=== PATIENT | female | born 1945 | race Caucasian/White ===

== ENCOUNTER → 2019-05-27 14:47 | Outpatient (CLI) | payer MEDICARE, OTHER, SELFPAY ==
--- NOTE | ~2019-05-27 | US_ITS ---
EXAMINATION: US transvaginal DATE: 05/27/2019 15:19 INDICATION: Postmenopausal bleeding. TECHNIQUE: Multiple transvaginal sonographic images of the pelvis were obtained. COMPARISON: Ultrasound 09/06/2011 FINDINGS: The uterus measures 10.9 x 5.5 x 7.7 cm. The uterus demonstrates coarsened echotexture. There is no f ree fluid in the pelvis. The endometrial complex measures 7 mm in thickness. The right ovary is not v isualized. The left ovary is not visualized. IMPRESSION: 1. Thickened endometrial complex. The differential diagnosis includes endometrial hyperplasia, polyp, and carcinoma. Biopsy is recommended. Reviewed, dictated and finalized at location A. TER ELECTRICAL IMPRESSION: 1. Thickened endometrial complex. The differential diagnosis includes endometri al hyperplasia, polyp, and carcinoma. Biopsy is recommended.
== END ==
PROVIDERS: Visit Provider Obstetrics & Gynecology Gynecology
DX: N95.0 Postmenopausal bleeding (principal); R93.89 Abnormal findings on diagnostic imaging of other specified body structures
CPT/HCPCS: 76830

== ENCOUNTER 2019-06-08 00:23 | Day surgery (SDC) | payer MEDICARE, OTHER, SELFPAY ==
[2019-06-03 15:13] VITALS: BMI 26.6
--- NOTE | 2019-06-08 07:24 | PM.HPGS ---
History of Present Illness History of Present Illness Consent: Risks, benefits, and alternatives have been discussed and questions answered. Patient agrees to proceed with procedure. Chief complaint: Post Menopausal Bleeding Narrative: Elaina Luque is a 74 year old female with postmenopausal bleeding. U/s showed thickened endometrium. Recommended to proceed with hysteroscopy and D&C. Reviewed risks of infection, bleeding, and perforation. Reviewed possible pathology. Patient voiced understanding and agrees to proceed. [facility] Past Medical History Medical History (Updated 06/08/19 @ 07:30 by Meli Brody MD) Hypothyroid Type 2 diabetes mellitus Surgical History Surgical History (Updated 06/08/19 @ 07:29 by Meli Brody MD) H/O foot surgery History of 2 sections Hx of cholecystectomy Family History Family History (Updated 08/11/18 @ 10:06 by DOCTOR UNKNOWN) Father Carcinoma of colon Family history of heart disease in male family member before age 55 Patient's father is Family history of cardiovascular disease Family history of lung cancer Mother Family history of dementia Hypertension Social History Social History Smoking status: Never smoker Second hand tobacco smoke exposure: No Alcohol intake: never Meds Home Medications and Allergies Home Medications Medication Instructions Recorded Confirmed Type metformin 500 mg tablet 500 mg PO BID 03/19/19 06/03/19 History L.acid-L.casei-B.bif-B.gabriel-FOS 1 cap PO DAILY 06/03/19 06/03/19 History [Probiotic Blend] Nad Precursor 1 cap PO DAILY 06/03/19 History Tear Support 1 cap PO DAILY 06/03/19 History coQ10 (ubiquinol) 1 tablet PO DAILY 06/03/19 06/03/19 History ferrous sulfate [Slow Fe] 142 mg PO 3XW 06/03/19 06/03/19 History vitamin B complex 1 tablet PO DAILY 06/03/19 06/03/19 History vitamin D3-vitamin K2 1 tablet PO DAILY 06/03/19 06/03/19 History Allergies Allergy/AdvReac Type Severity Reaction Status Date / Time fluorescein Allergy Intermediate LIPS/FACIAL Verified 06/03/19 15:15 TINGLING, SWELLING Sulfa (Sulfonamide Allergy Unknown Rash Verified 06/03/19 15:15 Antibiotics) sulfanilamide Allergy Unknown Rash Verified 06/03/19 15:15 Exam Const: General: healthy appearing and alert Orientation/consciousness: patient oriented x3 Resp: Effort & Inspection: normal respiratory effort Auscultation: clear to auscultation bilaterally Cardio: Rate: regular rate Rhythm: regular rhythm GI: GI Palp: Yes Soft to palpation, No Tenderness to palpation present (GI) and No Palpable mass present : External Female Exam: normal external appearance Speculum Exam - Vagina: normal appearance of the vagina, normal vaginal discharge and abnormal vaginal discharge (dark blood in vault and through cervix) Speculum Exam - Cervix: normal appearance of the cervix Bimanual exam- vagina & uterus: uterine size normal and consistency normal Bimanual Exam- Adnexa, other: normal adnexae and No adnexal tenderness Neuro: General: patient oriented x3 Assessment and Plan Assessment and plan (1) History of postmenopausal bleeding: Code(s): Z87.42 - Personal history of other diseases of the female genital tract Status: Acute Assessment and Plan: Plan D&C hysterscopy
--- NOTE | 2019-06-08 08:34 | ECG_ITS ---
Measurements Intervals [place] Rate: 73 P: 53 CT: 140 QRS: -5 QRSD: 89 T: 17 QT: 375 QTc: 414 Interpretive Statements SINUS RHYTHM DELAYED PRECORDIAL R/S TRANSITION BASELINE ARTIFACT- I, II, AVR, V1 BORDERLINE ECG Electronically Signed On 06-08-2019 9:04:17 CDT by Moises Jones D.O.
[2019-06-08 08:45] VITALS: BP 155/75; PULSE 73; RESP 16; TEMP 37.3; O2SAT 99
[2019-06-08] MEDS: LACTATED RINGERS 1,000 ML 30 ML IV CONT (08:55)
[2019-06-08 09:04] LABS: Hematocrit 37.4 % (37.0-47.0); Hemoglobin 12.1 g/dL (12.0-15.0)
[2019-06-08 09:06] LABS: Glucose Point of Care 102 (65-105)
--- NOTE | 2019-06-08 09:07 | WPDANESEPPF ---
Anes - Initial Pre Proc Eval Procedure: Operation Date: 06/08/19 10:00 Proposed Procedures p Hysteroscopy, Dilation and Curettage - Meli Brody MD Date/Time: 06/08/19 09:07 Surgeon: Meli Brody MD Pre Op Diagnosis: Post Menopausal Bleeding Patient Data Age: 74 Gender: F Height: 5 ft 4 in Weight: 72.3 kg Last Vital Signs Temp 37.3 C 06/08/19 08:45 Pulse 73 06/08/19 08:45 Resp 16 06/08/19 08:45 BP 155/75 H 06/08/19 08:45 Pulse Ox 99 06/08/19 08:45 Allergies Allergy/AdvReac Type Severity Reaction Status Date / Time fluorescein Allergy Intermediate LIPS/FACIAL Verified 06/08/19 08:26 TINGLING, SWELLING Sulfa (Sulfonamide Allergy Unknown Rash Verified 06/08/19 08:26 Antibiotics) sulfanilamide Allergy Unknown Rash Verified 06/08/19 08:26 Home Medications Medication Instructions Recorded Confirmed Type metformin 500 mg tablet 500 mg PO BID 03/19/19 06/08/19 History L.acid-L.casei-B.bif-B.gabriel-FOS 1 cap PO DAILY 06/03/19 06/08/19 History [Probiotic Blend] Nad Precursor 1 cap PO DAILY 06/03/19 06/08/19 History Tear Support 1 cap PO DAILY 06/03/19 06/08/19 History coQ10 (ubiquinol) 1 tablet PO DAILY 06/03/19 06/08/19 History ferrous sulfate [Slow Fe] 142 mg PO 3XW 06/03/19 06/08/19 History vitamin B complex 1 tablet PO DAILY 06/03/19 06/08/19 History vitamin D3-vitamin K2 1 tablet PO DAILY 06/03/19 06/08/19 History Laboratory Tests 06/08/19 06/08/19 06/08/19 09:00 09:00 09:03 Hgb Pending Hct Pending Sodium Pending Potassium Pending Chloride Pending Carbon Dioxide Pending BUN Pending Creatinine Pending Estim Creat Clear Calc Pending Estimated GFR Pending Glucose Pending POC Capillary Glucose 102 mg/dl mg/dl (65-105) Calcium Pending Patient hx anesthesia problems: post op nausea/vomiting Family hx anesthesia problems: none PMFSH Past Medical History Medical History Hypothyroid Type 2 diabetes mellitus Surgical History Surgical History H/O foot surgery History of 2 sections Hx of cholecystectomy Family History Family History Father Carcinoma of colon Family history of heart disease in male family member before age 55 Patient's father is Family history of cardiovascular disease Family history of lung cancer Mother Family history of dementia Hypertension Social History Social History Smoking status: Never smoker Second hand tobacco smoke exposure: No Alcohol intake: never Anes - Eval Final PreProcedure Day of Procedure 06/08/19 09:07 Patient weight: overweight Heart: regular rate and rhythm Lungs: clear to auscultation Airway: Mallampati scale class II Neurological: alert and oriented Last oral intake: >/= 8 hours ASA classification: III Emergent: no Anesthetic plan: proceed Anesthesia type and monitoring: general GIVS and standard monitoring Informed Consent: The patient's anesthetic plan and its attendant risks and benefits were discussed with the patient/family/POA. Questions were solicited and answers provided to the satisfaction of the patient/family/POA.
[2019-06-08 09:18] LABS: Blood Urea Nitrogen 14 mg/dL (7-17); Calcium 8.9 mg/dL (8.4-10.2); Carbon Dioxide 30 mmol/L (22-30); Chloride 102 mmol/L (98-107); Estimated CRCL calculation 83 ml/min; Estimated Glomerular Filt Rate > 60; Glucose 108 mg/dL (65-105); Potassium 3.9 mmol/L (3.4-5.0); Sodium 139 mmol/L (137-145)
[2019-06-08] MEDS: IBUPROFEN IV 800 MG/200 ML 800 MG/200 ML BAG 400 MG IVPB (09:48)
--- NOTE | 2019-06-08 09:55 | SUR.OPER ---
EBL:5CC, HYSTEROSCOPY FLUID:800CC OUT OF BAG, 700CC COLLECTED
--- NOTE | 2019-06-08 09:56 | PM.OP ---
Procedure Note - Brief Procedure Note - Brief Date of procedure: 06/08/19 Pre-op diagnosis: Post Menopausal Bleeding Post-op diagnosis: same Procedure performed: D&C hysteroscopy with myosure resection of polyp Anesthesia: MAC and local Surgeon: Meli Brody MD Estimated blood loss (mL): 5 Drains: No Packing: No Pathology: yes (endometrial shavings and curettings) Complications: No immediate complications Condition: stable Disposition: PACU Findings: large anterior endometrial polyp
[2019-06-08 10:05] VITALS: BP 126/63; PULSE 67; RESP 12; O2SAT 99
[2019-06-08 10:35] VITALS: BP 131/70; PULSE 61; RESP 16
--- NOTE | 2019-06-08 10:39 | SUR.PHASEII ---
1039 called an updated spouse and told him he could head up here to pick her up
--- NOTE | 2019-06-08 13:30 | OP_ITS ---
DATE OF PROCEDURE: 06/08/2019 PREOPERATIVE DIAGNOSIS: Postmenopausal bleeding. POSTOPERATIVE DIAGNOSIS: Postmenopausal bleeding. PROCEDURE: D and C, hysteroscopy with MyoSure resection of endometrial polyp. ANESTHESIA: MAC and local. FINDINGS: The uterus sounds to 8 cm. The cervix is stenotic. There is a large anterior endometrial polyp. The remainder of the endometrium appears atrophic. ESTIMATED BLOOD LOSS: 5 cc. PATHOLOGY: Endometrial shavings and curettings. DESCRIPTION OF PROCEDURE: The patient was taken to the operating room, placed under anesthesia in the dorsal lithotomy position. She was prepped and draped in the usual sterile fashion. Bivalved speculum was placed in the vagina. Cervix was grasped on the anterior lip with a tenaculum and injected with 1% lidocaine. The sound was used and the internal os was noted to be stenotic. The Os Finders were used and the cervix was opened. The cervix was serially dilated with Hegar. The uterus sounded to 8 cm. The diagnostic hysteroscope was placed. A large anterior polyp was noted. The MyoSure device was opened and placed. Under direct visualization, the polyp was removed in its entirety. The instruments were removed. The medium sharp curette was used to sharply curette the endometrium. Minimal material was obtained consistent with the atrophic appearance. All instruments were removed. The patient was awakened from anesthesia and taken to Recovery in stable condition. Aline I MT: Alexei
== END 2019-06-08 11:05 | disposition home or self-care (01) ==
PROVIDERS: Anesthesiology; PCP Internal Medicine; Visit Provider Obstetrics & Gynecology Gynecology
PROC: 0U5B8ZZ Destruction of Endometrium, Via Natural or Artificial Opening Endoscopic (ICD-10-PCS; CPT 58563; principal; 2019-06-08 10:00)
DX: N95.0 Postmenopausal bleeding (principal); N84.0 Polyp of corpus uteri; E03.9 Hypothyroidism, unspecified; E11.9 Type 2 diabetes mellitus without complications; Z79.84 Long term (current) use of oral hypoglycemic drugs
CPT/HCPCS: 58558; 36415; 80048; 85014; 85018; 88305; 93005; J1100; J1741; J2250; J2405; J2704; J3010; J7120

== ENCOUNTER 2020-04-15 14:45 | Outpatient (CLI) | payer MEDICARE, OTHER, SELFPAY ==
--- NOTE | ~2020-04-15 | US_ITS ---
EXAMINATION: US venous doppler [facility] DATE: 04/15/2020 15:23 INDICATION: Left lower limb pain. TECHNIQUE: Grayscale ultrasound images without and with compression and Doppler ultrasound images of the left lower extremity veins were obtained. COMPARISON: None. FINDINGS: The visualized portions of left common femoral vein, profunda (deep) femoral vein, femoral vein, popl iteal vein, peroneal veins, posterior tibial veins, and greater saphenous vein outflow are patent. IMPRESSION: 1. No deep venous thrombosis. Reviewed, dictated and finalized at location A. ARY TECH
== END 2020-04-15 14:46 | disposition home or self-care (01) ==
LOC: ANHIMG 14:52
PROVIDERS: PCP Internal Medicine; Visit Provider Internal Medicine
DX: M79.605 Pain in left leg (principal)
CPT/HCPCS: 93971

== ENCOUNTER → 2020-04-26 15:07 | Outpatient (CLI) | payer MEDICARE, OTHER, SELFPAY ==
--- NOTE | ~2020-04-26 | US_ITS ---
EXAMINATION: US soft tissue LE DATE: 04/26/2020 15:27 INDICATION: Left leg pain posterior and lateral to the left knee TECHNIQUE: Multiple grayscale and Doppler ultrasound images of the region of concern at the posterior lateral aspect of the left knee were obtained. COMPARISON: None FINDINGS/IMPRESSION: Unremarkable appearance to the subcutaneous tissues at the region of concern. No abnormal masses or f luid collections identified. Reviewed, dictated and finalized at location B. ICAL SUPPORT TECH
== END ==
PROVIDERS: PCP Internal Medicine; Visit Provider Internal Medicine
DX: M79.605 Pain in left leg (principal)
CPT/HCPCS: 76882

== ENCOUNTER → 2020-10-12 09:56 | Outpatient (CLI) | payer MEDICARE, OTHER, SELFPAY ==
--- NOTE | ~2020-10-12 | XR_ITS ---
XR tibia fibula LT 2V DATE: 10/12/2020 15:46 INDICATION: Left leg pain TECHNIQUE: AP and lateral views COMPARISON: None FINDINGS: No fracture, dislocation, periosteal reaction or bone destruction of the tibia or fibula is detected. Mild osteoarthritic changes at the knee joint. IMPRESSION: No significant abnormality of the tibia or fibula Reviewed, dictated and finalized at location B.
== END ==
PROVIDERS: PCP Internal Medicine; Visit Provider Nurse Practitioner
DX: M79.605 Pain in left leg (principal)
CPT/HCPCS: 73590

== ENCOUNTER 2020-12-01 10:45 | Outpatient (RCR) | payer MEDICARE, OTHER, SELFPAY ==
--- NOTE | 2020-10-25 14:18 | PTOPEVAL ---
PHYSICAL THERAPY EVALUATION AND PLAN OF CARE Thank you for referring Elaina Luque to [facility] The patient is scheduled to be seen for therapy?2x/week for 4 weeks. Please review, sign, date and return this plan of care ADELINA. I agree with and certify that the following plan of care is medically necessary. Referring Physician Date Attending Provider: Blanca French, WALTER-C Evaluation Outpatient Past Medical History Neurological History Hx Neurological Disorders No Significant History Cardiovascular History Hx Cardiac Disorders No Significant History Respiratory History Hx Respiratory Disorders No Significant History Gastrointestinal History Hx Cholecystectomy Yes Genitourinary History Hx Other Genitourinary Disorders Yes: PROLAPSED BLADDER- PESSARY DEVICE Musculoskeletal History Hx Arthritis Yes Hx Other Musculoskeletal Disorders Yes: INJURY TO RT HAND- DEGLOVING INJURY, NECK MUSCLE SURGERY Hematological History Hx Hematological Disorders No Significant History Endocrine History Hx Diabetes Yes HEENT History Hx Other HEENT Disorders Yes: SALIVARY STONES Integumentary History Hx Skin Disorders No Significant History Reproductive History Hx Abnormal Uterine Bleeding Yes Hx Section Yes: X2 Hx Post Menopausal Yes Psychosocial History Hx Psychiatric Disorders No Significant History Pain History History of Any Previous or Ongoing No Significant History Instance of Pain Anesthesia History Hx Post-Op Nausea/Vomiting Yes: REPORTS LAST FOR 3 DAYS AFTER GENERAL ANESTHESIA Other History Hx Other Surgeries Yes: FOOT SURGERY X2 FOR IMPACTED SWEAT GLANDS Diagnosis left leg pain Onset January 2020 Subjective Information reports that the pain Query Text:As Reported By Patient/ initially started after an Family accident and it hurt so bad she could not walk for 3 days and she used a walker. After a little bit it started to ease. But now she reports that there is severe pain in the lower left leg when she first gets out of bed first thing in the morning or whne she stands up after sitting for a time. She states that the pain wraps around the left lower leg and into the ankle. She states that it hurts so
--- NOTE | 2020-11-10 11:43 | PTOPEVAL ---
PHYSICAL THERAPY PLAN OF CARE UPDATE AND PROGRESS REPORT Thank you for referring Elaina Luque to [facility].? The patient is scheduled to be seen for therapy? 1x/week for 3 weeks. Please review, sign, date and return this plan of care ADELINA. I agree with and certify that the following plan of care is medically necessary. Referring Physician Date Attending Provider: Blanca French, TUBE KNITTER-C Diagnosis left leg pain Onset January 2020 Subjective Information reports that her overall pain Query Text:As Reported By Patient/ is so much improved compared Family to two weeks ago. The pain when she first gets out of bed is not nearly as severe as it was. Continues to have some pain around the quadriceps and some in the back of the knee. l Pain Score 0: Self Report Interventions Used Interventions Used By Clinicians Exercise,Manual Therapy Techniques Lower Extremity Range of Motion Knee Range of Motion Right Knee Flexion Range of Motion - Active 130 Knee Extension Range of Motion - Active 0 Query Text: Left Knee Flexion Range of Motion - Active 127 Knee Extension Range of Motion - Active -11 Query Text: Lower Extremity Muscle Strength Testing Hip Strength Right Hip Flexion Strength 5 Normal Hip Extension Strength 3 Fair Hip Abduction Strength 3+ Fair + Hip Medial Rotation Strength 5 Normal Hip Lateral Rotation Strength 5 Normal Left Hip Flexion Strength 5 Normal Hip Extension Strength 4 Good Hip Abduction Strength 4 Good Hip Medial Rotation Strength 5 Normal Hip Lateral Rotation Strength 5 Normal Knee Strength Right Knee Flexion Strength 5 Normal Knee Extension Strength 5 Normal Knee Strength Comments SLS on each side she achieves at least 10seconds but both sides have significant sway, left side is uncomfortable Left Knee Flexion Strength 4+ Good + Knee Extension Strength 4+ Good + Knee Strength Comments mildly pain to MMT Palpation Assessment Palpation Palpation continues to have decreased patellar mobility and noted trigger points in left quadriceps today Balance Assessment 5 Time Sit to Stand Time in Seconds 8.85 Stair Climbing Assessment Stair Climbing Assessment Stair Climbing Assistive Devices None Weight Bearing Status - Left Full Weight Bearing Status - Right
--- NOTE | 2020-12-01 11:24 | PTOPEVAL ---
PHYSICAL THERAPY DISCHARGE NOTE Thank you for referring Elaina Luque to [facility].? Please review, sign, date and return this plan of care ADELINA. I agree with and certify that the following plan of care is medically necessary. Referring Physician Date Attending Provider: Blanca French, GLASS MOULD CLEANER-C Discharge Diagnosis left leg pain Onset January 2020 Subjective Information Reports that her pain is Query Text:As Reported By Patient/ nearly gone. She is reporting Family that she feels like her pain is gone and her core balance has improved and she is much more able to help take care of her horses. She comments that it is difficult for her to come off the ground from half kneeling so we updated HEP to increased strength to be able to more easily achieve this task Self Report Pain Assessment Left Leg(s) Reported Pain Level 0 Pain Score Pain Score 0: Self Report Interventions Used Interventions Used By Clinicians Exercise Lower Extremity Range of Motion Knee Range of Motion Right Knee Flexion Range of Motion - Active 130 Knee Extension Range of Motion - Active 0 Query Text: Left Knee Flexion Range of Motion - Active 140 Knee Extension Range of Motion - Active 0 Query Text: Lower Extremity Muscle Strength Testing Hip Strength Right Hip Flexion Strength 5 Normal Hip Extension Strength 3 Fair Hip Abduction Strength 4+ Good + Hip Medial Rotation Strength 5 Normal Hip Lateral Rotation Strength 5 Normal Left Hip Flexion Strength 5 Normal Hip Extension Strength 4- Good - Hip Abduction Strength 4+ Good + Hip Medial Rotation Strength 5 Normal Hip Lateral Rotation Strength 5 Normal Knee Strength Right Knee Flexion Strength 5 Normal Knee Extension Strength 5 Normal Left Knee Flexion Strength 4+ Good + Knee Extension Strength 5 Normal Knee Strength Comments mildly pain to MMT Muscle Length Testing Muscle Length Testing Left Hamstring Length -30 Query Text:(90 - 90 Position) Right Hamstring Length -30 Query Text:(90 - 90 Position) Right Prone Knee Flexor Muscle Length ( 110 degrees) Left Prone Knee Flexor Muscle Length ( 110 degrees) General Exercise General Exercises Side Left Exercise Location LE Exercise Type
== END 2020-12-01 15:57 | disposition home or self-care (01) ==
LOC: ANHPT 10:45
PROVIDERS: PCP Internal Medicine; Visit Provider Nurse Practitioner
DX: M79.605 Pain in left leg (principal)
CPT/HCPCS: 97110; 97140; 97162

== ENCOUNTER → 2021-03-08 13:18 | Outpatient (CLI) | payer MEDICARE, OTHER, SELFPAY ==
--- NOTE | ~2021-03-08 | DEXA_ITS ---
Bone Density Report Name: NICHOLAS RUIZ Age: 75 Sex: Female Ethnicity: White Date of : 1945 Indication: monitoring treatment; height loss; postmenopausal Referring Provider: REINA CHAMBERS Study: Bone densitometry was performed. Exam Date: March 08, 2021 Accession number: [id number] Bone Density: Region BMD T-score Z-score Classification AP Spine (L1-L4) 1.223 1.6 3.9 Normal Femoral Neck (Left) 0.796 -0.5 1.5 Normal Total Hip (Left) 0.952 0.1 1.8 Normal Femoral Neck (Right) 0.757 -0.8 1.2 Normal Total Hip (Right) 1.022 0.7 2.4 Normal Total Hip Mean 0.987 0.4 2.1 Normal World Health Organization criteria for BMD impression classify patients as: Normal (T-score at or above -1.0), Osteopenia (T-score between -1.0 and -2.5), or Osteoporosis (T-score at or below -2.5). 10-year Fracture Risk: FRAX not reported because: All T-scores for Spine Total, Hip Total, Femoral Neck at or above -1.0 Treated for osteoporosis Previous Exams: Region Exam Age BMD T-score BMD Change BMD Change Date g/cm2 vs Baseline vs Previous AP Spine(L1-L4) 03/08/2021 75 1.223 1.6 0.060* 0.060* 09/29/2007 62 1.163 1.1 Total Hip(Left) 03/08/2021 75 0.952 0.1 0.002 0.002 09/29/2007 62 0.950 0.1 Total Hip(Right) 03/08/2021 75 1.022 0.7 0.013 0.013 09/29/2007 62 1.008 0.5 *Denotes significance at 95% confidence level, LSC for AP Spine = 0.022 g/cm2, LSC for Total Hip = 0.027 g/cm2 Clinical Information Provided by Patient: Is being treated for osteoporosis Has used the following medications: HRT (i.e. estrogen/hormone therapy), Vitamin D Patient maximum height was 63.5 Menopause Age: 58 Drinks caffeinated beverages Onset of menses at age 13 Number of children 2 Impression: The patient has normal bone mass. No significant bone loss was observed. Discussion: PATIENT UNDER TREATMENT WITH NO SIGNIFICANT BMD LOSS SINCE LAST EXAM. In an untreated patient, BMD typically declines with age. A lack of decline or gain is usually a sign that treatment is efficacious and fracture risk is reduced. It is important to ask patients whether they are taking their medications and to encourage continued and appropriate compliance with their osteoporosis therapies to reduce fracture risk. It is also important to review their risk factors and encourage appropriate calcium and vitamin D intakes, exerc
== END ==
PROVIDERS: PCP Internal Medicine; Visit Provider Obstetrics & Gynecology Gynecology
DX: Z78.0 Asymptomatic menopausal state (principal)
CPT/HCPCS: 77080

== ENCOUNTER → 2021-04-06 12:36 | Outpatient (CLI) | payer MEDICARE, OTHER, SELFPAY ==
--- NOTE | ~2021-04-06 | US_ITS ---
EXAMINATION: US transvaginal EXAM DATE: 04/06/2021 13:05 INDICATION: Postmenopausal bleeding. Progesterone, testosterone, estradiol. TECHNIQUE: Pelvic transvaginal sonogram was performed. There are multiple grayscale and Doppler imag es available for interpretation. Comparison is made to prior examination from 05/27/2019, 09/06/2011. FINDINGS: Uterus measures 9.4 x 5.3 x 6.3 cm, and is morphologically normal. Endometrial stripe is echogenic, measures 8 mm, which is considered mildly thickened, but is unchanged compared to 12. Differential diagnosis unchanged at hyperplasia, polyp, carcinoma. There is no free pelvic fluid. Right adnexa: The ovary is not identified. There is no adnexal mass. Left adnexa: The ovary is not identified. There is no adnexal mass. IMPRESSION: Chronic mild endometrial thickening, differential diagnosis including hyperplasia, polyp, carcinoma. Reviewed, dictated and finalized at location A. 1ST PRESSMAN ON WE[employer] IMPRESSION: Chronic mild endometrial thickening, differential diagnosis includi ng hyperplasia, polyp, carcinoma.
== END ==
PROVIDERS: PCP Internal Medicine; Visit Provider Obstetrics & Gynecology Gynecology
DX: N95.0 Postmenopausal bleeding (principal); R93.89 Abnormal findings on diagnostic imaging of other specified body structures
CPT/HCPCS: 76830

== ENCOUNTER 2021-05-18 10:20 | Outpatient (CLI) | payer MEDICARE, OTHER, SELFPAY ==
[2021-05-18 11:01] LABS: Anion Gap 5 mmol/L (8-16); Blood Urea Nitrogen 13 mg/dL (7-17); Calcium 9.5 mg/dL (8.4-10.2); Carbon Dioxide 33 mmol/L (22-30); Chloride 101 mmol/L (98-107); Estimated Glomerular Filt Rate > 60; Glucose 109 mg/dL (65-110); Potassium 4.3 mmol/L (3.4-5.0); Sodium 139 mmol/L (137-145)
[2021-05-18 11:02] LABS: Hematocrit 39.5 % (37.0-47.0); Hemoglobin 12.6 g/dL (12.0-15.0)
== END 2021-05-18 10:21 | disposition home or self-care (01) ==
PROVIDERS: Anesthesiology; PCP Internal Medicine; Visit Provider Obstetrics & Gynecology Gynecology
DX: Z01.812 Encounter for preprocedural laboratory examination (principal); E11.9 Type 2 diabetes mellitus without complications; D64.9 Anemia, unspecified
CPT/HCPCS: 36415; 80048; 85014; 85018

== ENCOUNTER 2021-05-22 00:45 | Day surgery (SDC) | payer MEDICARE, OTHER, SELFPAY ==
[2021-05-11 13:38] VITALS: BMI 25.1
--- NOTE | 2021-05-11 13:52 | PC.NURSE ---
Report to the Outpatient Waiting Room, entrance under the green pavilion located off [facility], at time _0845_ on date _05/22/21_. OR Time: _1045_. - You will be asked a series of questions to screen for COVID 19 for your protection. - A mask is required within the hospital. - No visitors are allowed at this time. Preoperative COVID Testing Requirements: NONE Patients may have clear liquids (water, carbonated beverages, clear teas, apple juice) until 3 hours prior to surgery (0745 AM) with a maximum of 20 ounces. - No food from midnight until time of surgery Take the following medications with a SIP of water the morning of surgery: NONE Medications to discontinue per ANESTHESIA - _ALL VITAMINS AND SUPPLEMENTS, 3 DAYS PRIOR TO SURGERY__ Date to take last dose_05/18/21_ Please no make-up, nail lao, hairspray, perfume, deodorant, or body powder the day of surgery. No jewelry (including any body piercings) or valuables the day of surgery, leave them at home. Please take a shower or bath the night before, or the morning of, surgery with an antibacterial soap. Wear comfortable, loose fitting clothing. - Jewelry must be removed prior to entering the operating room. Rings and piercings that are not removed may be cut off. - The hospital will not accept responsibility for valuables. - Please leave all valuables, including medications, at home the day of surgery. If you are going home after surgery, a licensed refrigerated company driver must drive you home. - NO public transportation without another adult. - We recommend that an adult stay with you for 24 hours following discharge. - We also recommend that you do not drive, make important decision, drink alcoholic beverages, or take any drugs that were not prescribed by your health care provider for at least 24 hours after your discharge time. Follow any additional instructions given to you from your DR. CHAMBERS. Telephone instructions given to ____PT and asked if any additional questions and then verbalized understanding. Patient advised to call surgeon office or pre surgery nurse liaisonDORIS [phone] if any additional questions.
--- NOTE | 2021-05-22 07:41 | WPDHPUPDATE1 ---
History and Physical Update Update Date/Time: 05/22/21 07:41 History and Physical has been reviewed, including an updated exam of the patient. There are NO changes in the patient's condition. Risks, benefits, and alternatives have been discussed and questions answered. Patient agrees to proceed with procedure.
--- NOTE | 2021-05-22 07:41 | PM.HPGS ---
History of Present Illness History of Present Illness Consent: Risks, benefits, and alternatives have been discussed and questions answered. Patient agrees to proceed with procedure. Chief complaint: Post Menopausal Bleeding Narrative: Elaina Luque is a 76 year old female with 3 days vaginal bleeding in April 2021. Pelvic ultrasound was performed and revealed a thickened lining at 8mm. Was recommended to undergo hysteroscopy. Patient has history of polyps in May of 2019. Risks of infection, bleeding, perforation, and possible pathology are reviewed. Patient voices understanding and agrees to proceed. Review of Systems Review of Systems: not repeated day of surgery; patient states no changes in status Genitourinary: Genitourinary: Reports urinary incontinence [facility] Past Medical History Medical History (Updated 03/14/21 @ 10:55 by MATT Murry) Hx of skin malignancy Hypothyroid Type 2 diabetes mellitus Surgical History Surgical History H/O foot surgery History of 2 sections Hx of cholecystectomy Family History Family History Father Carcinoma of colon Family history of heart disease in male family member before age 55 Patient's father is Family history of cardiovascular disease Family history of lung cancer Mother Family history of dementia Hypertension Social History Social History Smoking status: Never smoker Second hand tobacco smoke exposure: No Alcohol intake: never Substance use: never Substance use type: does not use Living arrangements: with family Spiritual care concerns: No Meds Home Medications and Allergies Home Medications Medication Instructions Recorded Confirmed Type metformin 500 mg tablet 500 mg PO BID 03/19/19 05/11/21 History L.acid-L.casei-B.bif-B.gabriel-FOS 1 cap PO DAILY 06/03/19 05/11/21 History [Probiotic Blend] ferrous sulfate [Slow Fe] 142 mg PO 3XW 06/03/19 05/11/21 History vitamin B complex 1 tablet PO DAILY 06/03/19 05/11/21 History vitamin D3-vitamin K2 1 tablet PO DAILY 06/03/19 05/11/21 History estradiol 0.1 mg/24 hr semiweekly 1 patch TRANSDERMAL WEEKLY ea 12/12/20 05/11/21 History transdermal patch Allergies Allergy/AdvReac Type Severity Reaction Status Date / Time fluorescein Allergy Intermediate LIPS/FACIAL Verified 05/11/21 13:35 TINGLING, SWELLING Sulfa (Sulfonamide Allergy Unknown Rash Verified 05/11/21 13:35 Antibiotics) sulfanilamide Allergy Unknown Rash Verified 05/11/21 13:35 Exam Const: General: healthy appearing and alert Orientation/consciousness: patient oriented x3 Resp: Effort & Inspection: normal respiratory effort Auscultation: clear to auscultation bilaterally Cardio: Rate: regular rate Rhythm: regular rhythm GI: GI Palp: Yes Soft to palpation, No Tenderness to palpation present (GI) and No Palpable mass present : External Female Exam: normal external appearance Speculum Exam - Vagina: normal appearance of the vagina, normal vaginal discharge and other (Cystocele and rectocele) Speculum Exam - Cervix: normal appearance of the cervix Bimanual exam- vagina & uterus: uterine size normal, consistency normal and other (Uterine prolapse) Bimanual Exam- Adnexa, other: normal adnexae and No adnexal tenderness Neuro: General: patient oriented x3 Assessment and Plan Assessment and plan (1) History of postmenopausal bleeding: Code(s): Z87.42 - Personal history of other diseases of the female genital tract Status: Acute Assessment and Plan: Plan to proceed with D&C hysteroscopy
[2021-05-22] MEDS: ACETAMINOPHEN 500 MG TABLET 1000 MG PO (09:07)
[2021-05-22 09:13] VITALS: BP 133/68; PULSE 78; RESP 20; TEMP 36.8; O2SAT 97
--- NOTE | 2021-05-22 09:16 | P.PNAN_ITS ---
Anes - Initial Pre Proc Eval Procedure: Operation Date: 05/22/21 10:45 Proposed Procedures p Hysteroscopy with Dilation and Curettage - Meli Brody MD Date/Time: 05/22/21 09:16 Surgeon: Meli Brody MD Pre Op Diagnosis: Post Menopausal Bleeding Patient Data Age: 76 Gender: F Height: 1.61 m Weight: 65.45 kg Allergies Allergy/AdvReac Type Severity Reaction Status Date / Time fluorescein Allergy Intermediate LIPS/FACIAL Verified 05/22/21 09:01 TINGLING, SWELLING Sulfa (Sulfonamide AdvReac Mild Rash Verified 05/22/21 09:01 Antibiotics) sulfanilamide AdvReac Mild Rash Verified 05/22/21 09:01 Home Medications Medication Instructions Recorded Confirmed Type metformin 500 mg tablet 500 mg PO BID 03/19/19 05/22/21 History L.acid-L.casei-B.bif-B.gabriel-FOS 1 cap PO DAILY 06/03/19 05/22/21 History [Probiotic Blend] ferrous sulfate [Slow Fe] 142 mg PO 3XW 06/03/19 05/22/21 History vitamin B complex 1 tablet PO DAILY 06/03/19 05/22/21 History vitamin D3-vitamin K2 1 tablet PO DAILY 06/03/19 05/22/21 History estradiol 0.1 mg/24 hr semiweekly 1 patch TRANSDERMAL WEEKLY ea 12/12/20 05/22/21 History transdermal patch Patient hx anesthesia problems: post op nausea/vomiting Family hx anesthesia problems: none Results Review: All pre-operative results and documents have been reviewed as part of the pre-operative evaluation. [facility], [facility] Past Medical History Medical History Hx of skin malignancy Hypothyroid Type 2 diabetes mellitus Surgical History Surgical History H/O foot surgery History of 2 sections Hx of cholecystectomy Family History Family History Father Carcinoma of colon Family history of heart disease in male family member before age 55 Patient's father is Family history of cardiovascular disease Family history of lung cancer Mother Family history of dementia Hypertension Social History Social History Smoking status: Never smoker Second hand tobacco smoke exposure: No Alcohol intake: never Substance use: never Substance use type: does not use Living arrangements: with family Spiritual care concerns: No Anes - Eval Final PreProcedure Day of Procedure 05/22/21 09:16 Patient weight: normal Heart: regular rate and rhythm Lungs: clear to auscultation Airway: Mallampati scale class II Neurological: alert and oriented Last oral intake: >/= 8 hours ASA classification: II Emergent: no Anesthetic plan: proceed Anesthesia type and monitoring: general GIVS and standard monitoring Results Review: All pre-operative results and documents have been reviewed as part of the pre-operative evaluation. Informed Consent: The patient's anesthetic plan and its attendant risks and benefits were discussed with the patient/family/POA. Questions were solicited and answers provided to the satisfaction of the patient/family/POA.
[2021-05-22] MEDS: LACTATED RINGERS 1,000 ML 30 ML IV CONT ×2 (09:25→11:20)
[2021-05-22 09:35] LABS: Glucose Point of Care 99 mg/dl (65-105)
[2021-05-22] MEDS: KETOROLAC 15 MG/ML VIAL (*BKC) IV PUSH (10:06)
--- NOTE | 2021-05-22 10:10 | W.PM.PROC2 ---
Procedure Note - Detailed Date of Procedure 05/22/21 Pre-op Diagnosis Post Menopausal Bleeding Post-op Diagnosis same Procedure Performed D&C hysteroscopy Surgeon Meli Brody MD Anesthesia MAC and local Findings Os is stenotic. Uterus sounds to 8cm in appears grossly atrophic. Description of Procedure The patient is taken to the operating room and placed under anesthesia in the dorsal lithotomy position. She was prepped and draped in the usual sterile fashion. Rosales speculum was placed and the cervix grasped on the anterior lip with a tenaculum. The cervix is injected in each quadrant with 1% lidocaine. The uterus is attempted to be sounded with there is internal cervical stenosis. The os Finders are utilized and the cavity able to be entered. The cervix was then serially dilated with Hegar to an 8. The uterus is sounded to 8cm. The diagnostic hysteroscope was placed and no abnormalities are noted. The hysteroscope was removed and the medium sharp curette used to curette the endometrium until a good uterine cry was noted in all areas. Minimal material was obtained consistent with the atrophic appearance. All instruments are removed. The patient is awakened from anesthesia and taken to recovery in stable condition. Sponge, needle, and instrument counts are correct per the OR staff. Estimated Blood Loss 5 Drains No Packing No Pathology yes (Endometrial curettings) Complications No immediate complications Condition stable Disposition PACU
[2021-05-22 10:14] VITALS: BP 115/64; PULSE 69; RESP 14; O2SAT 96
[2021-05-22 10:21] LABS: Glucose Point of Care 99 mg/dl (65-105)
[2021-05-22 10:40] VITALS: BP 126/67; PULSE 72; RESP 14; O2SAT 97
[2021-05-22] MEDS: ONDANSETRON INJ 4 MG/2 ML VIAL IV PUSH (10:53)
[2021-05-22 11:10] VITALS: BP 135/68; PULSE 66; RESP 14; O2SAT 93
[2021-05-22] MEDS: diphenhydrAMINE HCl INJ 50 MG/ML VIAL 12.5 MG IV PUSH ×2 (11:18→11:58)
[2021-05-22 11:40] VITALS: BP 136/65; PULSE 66; RESP 14
[2021-05-22 12:10] VITALS: BP 145/65; PULSE 63; RESP 14
[2021-05-22] MEDS: ONDANSETRON HCL ODT 4 MG TABLET PO (12:26)
== END 2021-05-22 12:46 | disposition home or self-care (01) ==
PROVIDERS: PCP Internal Medicine; Visit Provider Obstetrics & Gynecology Gynecology
PROC: 0U5B8ZZ Destruction of Endometrium, Via Natural or Artificial Opening Endoscopic (ICD-10-PCS; CPT 58563; principal; 2021-05-22 10:45)
DX: N95.0 Postmenopausal bleeding (principal); N88.2 Stricture and stenosis of cervix uteri; E03.9 Hypothyroidism, unspecified; E11.9 Type 2 diabetes mellitus without complications; Z85.828 Personal history of other malignant neoplasm of skin; Z79.84 Long term (current) use of oral hypoglycemic drugs; Z90.49 Acquired absence of other specified parts of digestive tract
CPT/HCPCS: 58558; 82948; 88305; A9270; J1200; J1885; J2270; J2405; J7120

== ENCOUNTER 2022-03-08 00:39 | Day surgery (SDC) | payer MEDICARE, SELFPAY ==
[2022-02-27 12:29] VITALS: BMI 26.6
[2022-03-08 13:30] VITALS: BP 162/77; PULSE 80; RESP 18; TEMP 36.6; O2SAT 99
[2022-03-08] MEDS: LACTATED RINGERS 1,000 ML 150 ML IV CONT (13:42)
[2022-03-08 13:47] LABS: Glucose Point of Care 85 mg/dl (65-105)
--- NOTE | 2022-03-08 14:01 | WPDANESEPPF ---
Anes - Initial Pre Proc Eval Procedure: Operation Date: 03/08/22 14:30 Proposed Procedures p Screening Colonoscopy - Ton Ceja MD Date/Time: 03/08/22 14:01 Surgeon: Ton Ceja MD Pre Op Diagnosis: Hx of colon polyps, fam hx of colon cancer Patient Data Age: 76 Gender: F Height: 1.63 m Weight: 69.3 kg Last Vital Signs Temp 97.9 F 03/08/22 13:30 Pulse 80 03/08/22 13:30 Resp 18 03/08/22 13:30 BP 162/77 H 03/08/22 13:30 Pulse Ox 99 03/08/22 13:30 O2 Del Method Room Air 03/08/22 13:30 Allergies Allergy/AdvReac Type Severity Reaction Status Date / Time fluorescein Allergy Intermediate LIPS/FACIAL Verified 03/08/22 13:29 TINGLING, SWELLING Sulfa (Sulfonamide AdvReac Mild Rash Verified 03/08/22 13:29 Antibiotics) sulfanilamide AdvReac Mild Rash Verified 03/08/22 13:29 morphine AdvReac Nausea and Verified 03/08/22 13:29 Vomiting Home Medications Medication Instructions Recorded Confirmed Type metformin 500 mg tablet 500 mg PO BID 03/19/19 02/27/22 History L.acidophil-L.casei-B.bifid-B.longum-FOS 1 cap PO DAILY 06/03/19 02/27/22 History 2 billion cell-50 mg capsule (Probiotic Blend) cholecalciferol (vit D3) 5,500 1 tablet PO DAILY 06/03/19 02/27/22 History unit-vit K2 200 mcg tablet ferrous sulfate 142 mg (45 mg 142 mg PO 3XW 06/03/19 02/27/22 History iron) tablet,extended release (Slow Fe) vitamin B complex 1 tablet PO DAILY 06/03/19 02/27/22 History estradiol 0.1 mg/24 hr semiweekly 1 patch transdermal WEEKLY 12/12/20 02/27/22 History transdermal patch tretinoin 0.05 % topical cream 1 applic topical QHS 12/21/21 02/27/22 History Laboratory Tests 03/08/22 13:44 POC Capillary Glucose 85 mg/dl mg/dl (65-105) Patient hx anesthesia problems: none Family hx anesthesia problems: none Results Review: All pre-operative results and documents have been reviewed as part of the pre-operative evaluation. [facility] Past Medical History Medical History Hx of skin malignancy Hypothyroid Type 2 diabetes mellitus Surgical History Surgical History H/O foot surgery History of 2 sections Hx of cholecystectomy Hx of dilation and curettage 05/22/21 Family History Family History Father Carcinoma of colon Family history of heart disease in male family member before age 55 Patient's father is Family history of cardiovascular disease Family history of lung cancer Mother Family history of dementia Hypertension Social History Social History Smoking status: Never smoker Second hand tobacco smoke exposure: No Alcohol intake: never Substance use: never Substance use type: does not use Living arrangements: with family Gender identity (if verbalized by the patient): Female Spiritual care concerns: No Anes - Eval Final PreProcedure Day of Procedure 03/08/22 14:01 Patient weight: normal Heart: regular rate and rhythm Lungs: clear to auscultation Airway: Mallampati scale class II Neurological: alert and oriented Last oral intake: >/= 8 hours ASA classification: II Emergent: no Anesthetic plan: proceed Anesthesia type and monitoring: general GIVS and standard monitoring Results Review: All pre-operative results and documents have been reviewed as part of the pre-operative evaluation. Informed Consent: The patient's anesthetic plan and its attendant risks and benefits were discussed with the patient/family/POA. Questions were solicited and answers provided to the satisfaction of the patient/family/POA.
--- NOTE | 2022-03-08 14:06 | PM.HPGS ---
History of Present Illness History of Present Illness Consent: Risks, benefits, and alternatives have been discussed and questions answered. Patient agrees to proceed with procedure. Chief complaint: Hx of colon polyps, fam hx of colon cancer Narrative: Elaina Luque is a 76 year old female Presents for screening colonoscopy. Patient states that her weight appetite and bowel movements are normal. Patient denies abdominal pain. She has had no bleeding. Patient's family history is significant her mother had colon cancer. Patient reports many years ago she did have a small polyp. Most recent colonoscopy 2014 was unremarkable. Patient presents today for neoplasia screening. Review of Systems Review of Systems: Review of systems noncontributory. [facility] Past Medical History Medical History Hx of skin malignancy Hypothyroid Type 2 diabetes mellitus Surgical History Surgical History H/O foot surgery History of 2 sections Hx of cholecystectomy Hx of dilation and curettage 05/22/21 Family History Family History Father Carcinoma of colon Family history of heart disease in male family member before age 55 Patient's father is Family history of cardiovascular disease Family history of lung cancer Mother Family history of dementia Hypertension Social History Social History Smoking status: Never smoker Second hand tobacco smoke exposure: No Alcohol intake: never Substance use: never Substance use type: does not use Living arrangements: with family Gender identity (if verbalized by the patient): Female Spiritual care concerns: No Meds Home Medications and Allergies Home Medications Medication Instructions Recorded Confirmed Type metformin 500 mg tablet 500 mg PO BID 03/19/19 02/27/22 History L.acidophil-L.casei-B.bifid-B.longum-FOS 1 cap PO DAILY 06/03/19 02/27/22 History 2 billion cell-50 mg capsule (Probiotic Blend) cholecalciferol (vit D3) 5,500 1 tablet PO DAILY 06/03/19 02/27/22 History unit-vit K2 200 mcg tablet ferrous sulfate 142 mg (45 mg 142 mg PO 3XW 06/03/19 02/27/22 History iron) tablet,extended release (Slow Fe) vitamin B complex 1 tablet PO DAILY 06/03/19 02/27/22 History estradiol 0.1 mg/24 hr semiweekly 1 patch transdermal WEEKLY 12/12/20 02/27/22 History transdermal patch tretinoin 0.05 % topical cream 1 applic topical QHS 12/21/21 02/27/22 History Allergies Allergy/AdvReac Type Severity Reaction Status Date / Time fluorescein Allergy Intermediate LIPS/FACIAL Verified 03/08/22 13:29 TINGLING, SWELLING Sulfa (Sulfonamide AdvReac Mild Rash Verified 03/08/22 13:29 Antibiotics) sulfanilamide AdvReac Mild Rash Verified 03/08/22 13:29 morphine AdvReac Nausea and Verified 03/08/22 13:29 Vomiting Vital Signs Vital Signs - 24 hr 03/08/22 13:30 Temperature 97.9 F Pulse Rate 80 Respiratory Rate 18 Blood Pressure 162/77 H Pulse Oximetry 99 Oxygen Delivery Room Air Exam Narrative: Physical exam reveals patient to be alert. Vital signs stable. HEENT exam is unremarkable. Patient is anicteric. Lungs are clear to auscultation and percussion. Heart is without murmur or extra sounds. Abdomen bowel sounds present soft nontender with no organomegaly. Digital external rectal exam is normal. Assessment and Plan Assessment and plan (1) Screening for colon cancer: Code(s): Z12.11 - Encounter for screening for malignant neoplasm of colon Status: Acute Assessment and Plan: Patient presents today for neoplasia screening colonoscopy. (2) Family history of colon cancer in mother: Code(s): Z80.0 - Family history of malignant neoplasm of digestive organs
[2022-03-08 15:05] VITALS: BP 133/68; PULSE 70; RESP 20; O2SAT 99
[2022-03-08 15:15] VITALS: BP 148/73; PULSE 53; RESP 15; O2SAT 100
[2022-03-08 15:25] VITALS: BP 151/73; PULSE 59; RESP 14; O2SAT 100
== END 2022-03-08 15:33 | disposition home or self-care (01) ==
PROVIDERS: PCP Internal Medicine; Visit Provider Internal Medicine Gastroenterology
PROC: 0DJD8ZZ Inspection of Lower Intestinal Tract, Via Natural or Artificial Opening Endoscopic (ICD-10-PCS; CPT 45378; principal; 2022-03-08 14:30)
DX: Z12.11 Encounter for screening for malignant neoplasm of colon (principal); K57.30 Diverticulosis of large intestine without perforation or abscess without bleeding; K64.8 Other hemorrhoids; E03.9 Hypothyroidism, unspecified; E11.9 Type 2 diabetes mellitus without complications; Z86.010 Personal history of colon polyps; Z80.0 Family history of malignant neoplasm of digestive organs; Z90.49 Acquired absence of other specified parts of digestive tract
CPT/HCPCS: G0105; 82948; J2704; J7120

== ENCOUNTER → 2022-06-29 13:06 | Outpatient (CLI) | payer MEDICARE, OTHER, SELFPAY ==
--- NOTE | ~2022-06-29 | XR_ITS ---
[id number]_CR DATE: 06/29/2022 13:38 INDICATION: Right chest pain TECHNIQUE: PA chest. 3 views of the right ribs. COMPARISON: None FINDINGS: Normal heart size. Aortic arch calcification. No hilar or mediastinal enlargement. No pulmonary infiltrate or consolidation, pleural effusion or pulmonary vascular congestion or pneumo thorax is detected. No right rib fracture or bone destruction is evident. Surgical clips, right upper quadrant, consistent with cholecystectomy. IMPRESSION: No active cardiac pulmonary disease No right rib fracture is detected Status post cholecystectomy Reviewed, dictated and finalized at [facility]. Reviewed, dictated and finalized at [facility].
== END ==
PROVIDERS: PCP Nurse Practitioner; Visit Provider Nurse Practitioner
DX: R07.81 Pleurodynia (principal); Z90.49 Acquired absence of other specified parts of digestive tract
CPT/HCPCS: 71101

== ENCOUNTER 2023-03-14 11:24 | Outpatient (CLI) | payer MEDICARE, SELFPAY ==
--- NOTE | ~2023-03-14 | XR_ITS ---
AP view of the pelvis and AP and lateral views of the left hip Clinical history: Pain Findings: No acute fracture or dislocation is seen. Osseous alignment is anatomic. Bilateral hip and SI joint spaces are preserved. Soft tissues are unremarkable. Impression: No significant abnormality is seen. Reviewed, dictated and finalized at [facility]. [employer] Impression: No significant abnormality is seen.
== END 2023-03-14 11:25 | disposition home or self-care (01) ==
PROVIDERS: PCP Nurse Practitioner; Visit Provider Nurse Practitioner
DX: M25.552 Pain in left hip (principal)
CPT/HCPCS: 73502

== ENCOUNTER 2023-03-27 15:55 | Outpatient (CLI) | payer MEDICARE, SELFPAY ==
--- NOTE | ~2023-03-27 | US_ITS ---
EXAMINATION:US venous doppler LE BI INDICATION:Bilateral leg edema with pain TECHNIQUE: Multiple grayscale, color flow and Doppler images of the right and left lower extremity de ep venous systems were obtained and reviewed. COMPARISON:No prior studies for comparison. FINDINGS: The common femoral, superficial femoral and popliteal veins demonstrate normal respiratory variation, augmentation and compressibility. Color flow is also seen within the posterior tibial, pe roneal, greater saphenous and profunda veins. IMPRESSION: 1: No lower extremity deep venous thrombosis. Reviewed, dictated and finalized at location [facility]. PACKER
== END 2023-03-27 15:56 | disposition home or self-care (01) ==
PROVIDERS: PCP Nurse Practitioner; Visit Provider Nurse Practitioner
DX: M79.661 Pain in right lower leg (principal); M79.662 Pain in left lower leg
CPT/HCPCS: 93970

== ENCOUNTER 2023-07-05 13:35 | Outpatient (CLI) | payer MEDICARE, SELFPAY ==
--- NOTE | ~2023-07-05 | XR_ITS ---
EXAM: XR knee LT 3V DATE: 07/05/2023 13:52 HISTORY: fall a few months ago posterior and medial pain . COMPARISON: None available. FINDINGS: Decreased mineralization. No fracture or dislocation. No lytic or blastic lesion. Severe m edial joint space narrowing and narrowing of the lateral aspect of the patellofemoral joint. Tricompa rtmental osteophytosis, moderate in the medial and patellofemoral compartments. Chondrocalcinosis. No erosion or periosteal change. Moderate volume joint fluid. IMPRESSION: Tricompartmental left knee arthritis, severe in the medial and patellofemoral compartment s. Chondrocalcinosis. Moderate joint effusion. Reviewed, dictated and finalized at location [facility]. IMPRESSION: Tricompartmental left knee arthritis, severe in the medial and griffith llofemoral compartments. Chondrocalcinosis. Moderate joint effusion.
== END 2023-07-05 13:36 ==
LOC: MICIMG 13:39
DX: S80.912A Unspecified superficial injury of left knee, initial encounter (principal); X58.XXXA Exposure to other specified factors, initial encounter; M17.12 Unilateral primary osteoarthritis, left knee; M25.462 Effusion, left knee
CPT/HCPCS: 73562

== ENCOUNTER 2023-07-17 12:40 | Outpatient (CLI) | payer MEDICARE, SELFPAY ==
--- NOTE | ~2023-07-17 | MM_ITS ---
EXAMINATION: MM screening tyra BI w shannan HISTORY: Screening TECHNIQUE: Craniocaudal and mediolateral oblique 3-D tomosynthesis images were obtained and synthetic 2-D images were generated. CAD analysis was submitted and interpreted. COMPARISON: 08/27/2014 BREAST PARENCHYMAL COMPOSITION: Dense: The breasts are extremely dense, which lowers the sensitivity of mammography. FINDINGS: There is no evidence of suspicious mass, calcification, or architectural distortion to sugg est malignancy in either breast. There has been no suspicious interval change. IMPRESSION: 1. No mammographic evidence of malignancy. 2. Recommend routine screening mammography in one year. BI-RADS Category 1: Negative Reviewed, dictated and finalized at location [facility].
== END 2023-07-17 12:41 ==
PROVIDERS: PCP Obstetrics & Gynecology; Referring Provider Nurse Practitioner; Visit Provider Obstetrics & Gynecology
DX: Z12.31 Encounter for screening mammogram for malignant neoplasm of breast (principal)
CPT/HCPCS: 77063; 77067

== ENCOUNTER 2023-10-13 07:44 | Emergency (ER) | payer MEDICARE, SELFPAY ==
--- NOTE | ~2023-10-13 | CT_ITS ---
EXAMINATION: CT abdomen pelvis w con DATE: 10/13/2023 10:45 INDICATION: Right flank pain TECHNIQUE: Computed tomography (CT) of the abdomen and pelvis was performed with 100 mL Omnipaque-350 intravenous contrast. Automated exposure control and iterative reconstruction technique were employe d. The dose-length product was 459.36 mGy-cm. COMPARISON: None FINDINGS: Mild dependent atelectasis in both lower lobes. Heart size is normal. No pericardial or pleural effus ion. Small sliding-type hiatal hernia. Common bile duct dilated to 11 mm with mild intrahepatic bilia ry ductal dilation which may be related to prior cholecystectomy with surgical clips the gallbladder fossa. Spleen, bilateral adrenal glands and left kidney are normal. Estelle low-attenuation cyst at the lower pole the right kidney. Cluster of three 8-10 mm cystic lesions and a couple small calcific ations at the tail of the pancreas. Bladder is normal. Pessary at the vaginal vault. Heterogeneous ut erine enhancement suggesting likely uterine fibroids the largest measuring 3 cm in maximal diameter. 2.8 x 1.7 cm enhancing nodule in the left adnexal region which abuts the ovary and uterus indetermina te but possibly a pedunculated fibroid given the similar enhancement to the uterus. No free intraperi toneal gas or fluid. No pathologically enlarged abdominal or pelvic lymphadenopathy. Small bilateral fat-containing inguinal hernias. Mild lumbar levocurvature with mild to moderate spondylosis. IMPRESSION: 1. Intra and extra hepatic biliary ductal dilation which may be related to prior cholecystectomy but would correlate with liver function tests and if clinically indicated MRCP. 2. Fibroid uterus with 2.8 x 1.7 cm avidly enhancing mass at the left adnexa possibly a pedunculated uterine fibroid but could not exclude ovarian neoplasm. Consider further evaluation with either ultra sound or MRI. 3. Cluster of 3 subcentimeter cystic lesion with a couple small calcific location but without evident solid soft tissue component at the tail the pancreas. 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 The differential would include The differential diagnosis includes pseudocys t, intraductal papillary mucinous neoplasm (IPMN), and the less common serous cystadenoma and neuroen docrine tumor. Correlate for history of pancreatitis. Reviewed, dictated and finalized at location A. IMPRESSION: 1. Intra and extra hepatic biliary ductal dilation which may be related to prio r cholecystectomy but would correlate with liver function tests and if clinical ly indicated MRCP. 2. Fibroid uterus with 2.8 x 1.7 cm avidly enhancing mass at the left adnexa po ssibly a pedunculated uterine fibroid but could not exclude ovarian neoplasm. C onsider further evaluation with either ultrasound or MRI. 3. Cluster of 3 subcentimeter cystic lesion with a couple small calcific locati on but without evident solid soft tissue component at the tail the pancreas. Fe atures would be most consistent with mucinous cystic neoplasm (MCN). The differ ential would include The differential diagnosis includes pseudocyst, intraducta l papillary mucinous neoplasm (IPMN), and the less common serous cystadenoma an d neuroendocrine tumor. Correlate for history of pancreatitis.
--- NOTE | ~2023-10-13 | XR_ITS ---
EXAMINATION: XR chest 1V portable DATE: 10/13/2023 09:46 INDICATION: Right flank pain TECHNIQUE: frontal view of the chest was obtained. COMPARISON: None FINDINGS: The lungs are clear with no focal airspace opacities, pulmonary edema, pleural effusion or pneumothor ax. The cardiomediastinal silhouette is normal. IMPRESSION: 1. No acute cardiopulmonary disease. Reviewed, dictated and finalized at location A.
[2023-10-13 07:49] VITALS: BP 174/70; PULSE 76; RESP 20; TEMP 36.4; O2SAT 100
[2023-10-13 08:02] VITALS: BP 174/84; PULSE 72; RESP 16; O2SAT 97
[2023-10-13 08:21] LABS: Basophils Absolute Auto 0.1 K/mm3 (0.0-0.1); Basophils Percent Auto 1.4 % (0.2-1.2); Eosinophils Absolute Auto 0.2 K/mm3 (0-0.3); Eosinophils Percent Auto 2.6 % (0-4.4); Hemoglobin 13.3 g/dL (12.0-15.0); Immature Granulocyte Absolute 0.02 K/mm3 (0.00-0.031); Immature Granulocyte Percent A 0.3 % (0-0.5); Lymphocytes Absolute Auto 1.98 K/mm3 (0.9-3.2); Lymphocytes Percent Auto 24.8 % (18.3-44.2); Mean Corpuscular HGB Conc 31.7 g/dl (32-36); Mean Corpuscular Hemoglobin 28.8 pg (26-34); Mean Corpuscular Volume 90.9 fl (80-100); Mean Platelet Volume 12.2 fl (7.4-10.4); Monocytes Absolute Auto 0.6 K/mm3 (0.1-0.6); Monocytes Percent Auto 7.5 % (2.6-8.5); Neutrophils Absolute Auto 5.1 K/mm3 (1.3-6.7); Neutrophils Percent Auto 63.4 % (45.5-73.1); Platelet Count Result 237 k/mm3 (150-375); Red Blood Count 4.62 M/mm3 (4.2-5.4); Red Cell Distribution Width 13.1 % (11.5-14.5)
[2023-10-13 08:28] LABS: Appearance Urine Cloudy (Clear); Bacteria Urine 2+ /hpf; Bilirubin Urine Negative (Negative); Blood Urine Negative (Negative); Color Urine Yellow (Yellow); Glucose Urine UA Negative (Negative); Ketones Urine Negative (Negative); Leukocyte Esterase Ur 3+ LEU/UL (Negative); Nitrate Urine Negative (Negative); Non Pathogenic Casts 0-2; Protein Urine Negative (Negative); Specific Grav Ur 1.013 (1.001-1.035); Squamous Epithelial Cell Urine Few /hpf (Few); Urobilinogen Urine 0.2 mg/dL (<2.0); WBC Urine 21-50 /hpf (0-3); pH Urine 6.5 (5.0-9.0)
[2023-10-13 08:35] LABS: Alanine Aminotransferase 11 U/L (6-35); Albumin Level 4.5 g/dL (3.5-5.1); Alkaline Phosphatase 83 U/L (38-126); Anion Gap 8 mmol/L (4-12); Aspartate Amino Transferase 22 U/L (14-36); Bilirubin,Total 0.5 mg/dL (0.2-1.3); Blood Urea Nitrogen 19 mg/dL (7-17); Calcium 9.1 mg/dL (8.4-10.2); Carbon Dioxide 32 mmol/L (22-30); Chloride 99 mmol/L (98-107); Estimated CRCL calculation 78 ml/min; Estimated Glomerular Filt Rate > 60; Glucose 106 mg/dL (65-110); Potassium 3.8 mmol/L (3.4-5.0); Sodium 139 mmol/L (137-145)
[2023-10-13 08:45] LABS: Add Urine Microscopic? YES
--- NOTE | 2023-10-13 08:51 | ED.FEMALEGU ---
HPI - Female Genitourinary General Chief complaint: Urogenital-Female Stated complaint: R flank pain Time Seen by Provider: 10/13/23 08:51 Source: patient and family Mode of arrival: ambulatory History of Present Illness HPI Narrative: 78 years old white female came to the emergency room by private car complaining of right flank pain started last night, dull aching, no radiation, worse with any movement. Was not able to get out of bed this morning because of the pain. Little better at rest, Tylenol make it slightly better. She denies any fever, chills, nausea, vomiting, similar symptoms. 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 Patient is telling me that she does work daily. Related Data Home Medications Medication Instructions Recorded Confirmed cholecalciferol (vit D3) 137.5 mcg 1 tablet PO DAILY 06/03/19 10/01/23 (5,500 unit)-vit K2 200 mcg tablet vitamin B complex 1 tablet PO DAILY 06/03/19 10/01/23 estradiol 0.1 mg/24 hr semiweekly 1 patch transdermal WEEKLY 12/12/20 10/01/23 transdermal patch testosterone 100 mg implant pellet 100 mg subcut ONCE 04/05/22 10/01/23 progesterone micronized 200 mg 170 mg PO QHS 06/29/22 10/01/23 capsule ferrous sulfate 142 mg (45 mg 142 mg PO 2XW 01/04/23 10/01/23 iron) tablet,extended release (Slow Fe) metformin 500 mg tablet 500 mg PO BID 01/04/23 10/01/23 tazarotene 0.05 % topical cream 1 applic topical DAILY 04/02/23 10/01/23 estradiol 0.0375 mg/24 hr 1 patch transdermal 2XW 08/07/23 10/01/23 semiweekly transdermal patch Allergies Allergy/AdvReac Type Severity Reaction Status Date / Time fluorescein Allergy Intermediate LIPS/FACIAL Verified 10/01/23 14:31 TINGLING, SWELLING Sulfa (Sulfonamide Allergy Mild Rash Verified 10/13/23 09:26 Antibiotics) sulfanilamide Allergy Mild Rash Verified 10/13/23 09:26 morphine AdvReac Nausea and Verified 10/01/23 14:31 Vomiting Review of Systems Review of Systems: All systems reviewed & are unremarkable except as noted in HPI and below PMFSH Past Medical History Medical History Hx of skin malignancy Hypothyroid Type 2 diabetes mellitus Surgical History Surgical History H/O foot surgery History of 2 sections Hx of cholecystectomy Hx of dilation and curettage 05/22/21 Family History Family History (Reviewed 10/13/23 @ 09: by Feliciano Patel MD) Father Carcinoma of colon Family history of heart disease in male family member before age 55 Patient's father is Family history of cardiovascular disease Family history of lung cancer Mother Family history of dementia Hypertension Social History Social History (Reviewed 10/13/23 @ 09: by Feliciano Patel MD) Smoking status: Never smoker Second hand tobacco smoke exposure: No Alcohol intake: never Substance use: never Substance use type: does not use Do You Feel Safe in your Home?: Yes Lack of Transportation: No Lack of Food: Never True Current Housing: I Have Housing Concerned About Future Housing: No Difficulty Paying Gas/Electric Bills: No Difficulty Paying for Meds: No Currently Unemployed: No Education: Master's Degree or Higher Difficulty w/ Childcare or Family Care: No Living arrangements: with family Occupation/Education: retired Gender identity (if verbalized by the patient): Female Spiritual care concerns: No Exam Narrative: General appearance: Well-developed, well-nourished Skin: Normal color Head: Normocephalic, nontraumatic Eyes: Clear conjunctiva ENT: Oropharynx normal, ears normal, nose normal Neck: Supple, nontender Chest and respiratory: Airway patent, no respiratory distress, no accessory muscle use Heart: Regular rate/rhythm Abdomen: Soft, slight tenderness right flank area, no bruises, no swelling or rash, no organomegaly,
[2023-10-13 09:04] VITALS: BP 164/74; PULSE 72; RESP 16; TEMP 36.6; O2SAT 97
[2023-10-13 09:42] LABS: Lipase 57 U/L (23-300)
[2023-10-13] MEDS: KETOROLAC 30 MG/ML VIAL (*BKC) IV PUSH (09:48)
[2023-10-13] MEDS: SODIUM CHLORIDE 0.9% IV 1,000 ML 999 ML IV CONT (09:49)
[2023-10-13 10:01] VITALS: BP 155/84; PULSE 72; RESP 16; TEMP 36.6; O2SAT 98
[2023-10-13 11:10] VITALS: BP 156/74; O2SAT 99
[2023-10-13 12:33] VITALS: BP 157/74; PULSE 67; RESP 18; TEMP 36.9; O2SAT 99
== END 2023-10-13 12:39 | disposition home or self-care (01) ==
PROVIDERS: Emergency Provider Emergency Medicine; PCP Nurse Practitioner
DX: N39.0 Urinary tract infection, site not specified (principal); D25.9 Leiomyoma of uterus, unspecified; K86.2 Cyst of pancreas; N94.89 Other specified conditions associated with female genital organs and menstrual cycle; E11.9 Type 2 diabetes mellitus without complications; E03.9 Hypothyroidism, unspecified; Z85.828 Personal history of other malignant neoplasm of skin; Z90.49 Acquired absence of other specified parts of digestive tract; Z79.890 Hormone replacement therapy; Z79.84 Long term (current) use of oral hypoglycemic drugs
CPT/HCPCS: 36415; 71045; 74177; 80053; 81001; 83690; 85025; 87086; 96361; 96365; 96375; 99284; J0696; J1885; J7030; Q9967

== ENCOUNTER 2023-12-23 12:38 | Outpatient (CLI) | payer MEDICARE, SELFPAY ==
--- NOTE | ~2023-12-23 | US_ITS ---
US pelvic complete w TV Ordering provider: Francesco Zuluaga APRN History: . N94.89 - Other specified conditions associated with femal... . Comparison: None. Technique: Transabdominal and endovaginal ultrasound of the pelvis (Doppler ultrasound interrogation techniques used as needed for this exam.) FINDINGS: CERVIX: Normal. UTERUS: Measures 11.8x 5.7x 6.8 cm in length which is within normal limits and is anteverted. . Mult iple small fibroids are noted with the largest measures 1.2 x 2.1 x 2.5 cm.. ENDOMETRIUM: Normal in thickness measuring 5 mm. No endometrial masses, cysts or fluid. CUL DE SAC: No free fluid. RIGHT OVARY: Not well demonstrated. LEFT OVARY: Normal in size measuring 3.1x 1.8 x2.3 centimeters. Normal echotexture. Doppler vascular flow present. ADNEXA: Right adnexal cystic area seen in the transabdominal images which is not demonstrated by yoon svaginal exam and measures 7 x 5.5 x 7.8 cm.. IMPRESSION: Possible cystic area in the right axilla. Multiple small fibroids.. Reviewed, dictated and finalized at location A.
== END 2023-12-23 12:39 | disposition home or self-care (01) ==
LOC: MICIMG 12:39
PROVIDERS: PCP Nurse Practitioner; Visit Provider Nurse Practitioner
DX: N94.89 Other specified conditions associated with female genital organs and menstrual cycle (principal); D25.9 Leiomyoma of uterus, unspecified
CPT/HCPCS: 76830; 76856